=== PATIENT | female | born 1940 | race Caucasian/White ===

== ENCOUNTER 2023-12-30 15:07 | Inpatient (IN) | payer MEDICARE ==
[~2023-12-30] VITALS: Ht 162.6 cm; Wt 69.9 kg
[2023-12-30] MEDS ORDERED: METO-357 PO (15:27)
[2023-12-30] MEDS ORDERED: LISI-782 PO (15:27)
[2023-12-30] MEDS ORDERED: VITAMIN B12 PO (15:27)
[2023-12-30] MEDS ORDERED: ESCI10TA PO (15:27)
[2023-12-30] MEDS ORDERED: LATA7.5D EACHEYE (15:27)
[2023-12-30] MEDS ORDERED: ASPI81TA31 PO (15:27)
[2023-12-30] MEDS ORDERED: QUET25TA PO (15:27)
[2023-12-30] MEDS ORDERED: IPRA12.9 (15:27)
[2023-12-30] MEDS ORDERED: ATOR20TA PO (15:27)
[2023-12-30] MEDS ORDERED: ERGO500040 PO (15:27)
[2023-12-30] MEDS ORDERED: LEVO75TA7 PO (15:27)
[2023-12-30 17:17] LABS: BASOPHILS % (AUTO) 0.8 % (0.0-2.0); EOSINOPHILS # (AUTO) 0.1 K/uL (0.0-0.7); EOSINOPHILS % (AUTO) 1.9 % (0.0-7.0); HEMATOCRIT 37.7 % (31.2-41.9); HEMOGLOBIN 12.4 g/dL (10.9-14.3); LYMPHOCYTES # (AUTO) 1.7 K/uL (0.8-4.8); LYMPHOCYTES % (AUTO) 28.2 % (20.5-51.5); MEAN CORPUSCULAR HEMOGLOBIN 29.6 uug (24.7-32.8); MEAN CORPUSCULAR HGB CONC 33 g/dL (32.3-35.6); MEAN CORPUSCULAR VOLUME 90.2 fL (75.5-95.3); MONOCYTES # (AUTO) 0.6 K/uL (0.1-1.30); MONOCYTES % (AUTO) 9.6 % (0.0-11.0); NEUTROPHILS # (AUTO) 3.7 K/uL (1.8-8.9); NEUTROPHILS % (AUTO) 59.5 % (38.5-71.5); PLATELET COUNT (AUTO) 227 K/uL (179-408); RED BLOOD CELL COUNT(AUTO) 4.18 MIL/uL (3.63-4.92); RED CELL DISTRIBUTION WIDTH 14.6 % (12.3-17.7); WHITE BLOOD COUNT (AUTO) 6.1 K/uL (3.8-11.8)
[2023-12-30 17:23] LABS: DIFFERENTIAL COMMENT 1
[2023-12-30 17:37] LABS: ETHANOL < 3 MG/DL (0-10)
[2023-12-30 17:45] LABS: CALCIUM 9.1 mg/dL (8.5-10.1); CARBON DIOXIDE 26 mmol/L (21-32); CHLORIDE 105 mmol/L (98-107); CREATININE 0.7 mg/dL (0.6-1.3); GLUCOSE 99 mg/dL (74-106); POTASSIUM 3.6 mmol/L (3.5-5.1); SODIUM SERUM 141 mmol/L (136-145); UREA NITROGEN, BLOOD 21 mg/dL (7-18)
[2023-12-30 17:57] LABS: ALANINE AMINOTRANSFERASE 11 U/L (14-59); ALBUMIN 3.4 g/dL (3.4-5.0); ALKALINE PHOSPHATASE 52 U/L (50-136); ASPARTATE AMINOTRANSFERASE 9 U/L (15-37); BILIRUBIN,DIRECT 0.1 mg/dL (0.0-0.2); BILIRUBIN,TOTAL 0.4 mg/dL (0.2-1.0); TOTAL PROTEIN, SERUM 6.6 g/dL (6.4-8.2)
[2023-12-30 18:00] LABS: ACETAMINOPHEN < 2.0 ug/mL (10-30)
[2023-12-30] MEDS: IV NS 1000 ML 1,000 ML IV ONE ×2 (18:21→20:08)
[2023-12-30 18:58] LABS: *BILIRUBIN,URIN NEGATIVE (NEGATIVE); *BLOOD, URINE TRACE (NEGATIVE); *CLARITY,URINE CLEAR (CLEAR); *COLOR,URINE YELLOW (YELLOW); *KETONES,URINE NEGATIVE (NEGATIVE); *PROTEIN,URINE NEGATIVE (NEGATIVE); *UROBILINOGEN,URINE 0.2 E.U./dl (NORMAL); LEUKOCYTE ESTERASE ,URINE TRACE (NEGATIVE); NITRITE, URINE NEGATIVE (NEGATIVE); UGLUCOSE NEGATIVE (NEGATIVE)
[2023-12-30 19:28] LABS: *AMPHETAMINE, URINE NEGATIVE (NEGATIVE); *BARBITURATE, URINE NEGATIVE (NEGATIVE); *BENZODIAZEPINE, URINE NEGATIVE (NEGATIVE); *CANNABINOID, URINE NEGATIVE (NEGATIVE); *COCCAINE, URINE NEGATIVE (NEGATIVE); *OPIATE, URINE NEGATIVE (NEGATIVE); *PHENCYCLIDINE SCREEN,URINE NEGATIVE (NEGATIVE); FENTANYL, URINE NEGATIVE (NEGATIVE)
[2023-12-30 19:43] LABS: BACTERIA,URINE MANY /HPF (NONE SEEN); RBC,URINE 0-3 /HPF (0-3); SQUAMOUS EPITHELIAL CELL,UR MANY /HPF (NONE SEEN); WBC,URINE 0-3 /HPF (0-3)
[2023-12-30] MEDS ORDERED: diphenhydrAMINE 50 MG/1 ML VIAL ONE (20:01)
[2023-12-30] MEDS ORDERED: LORAZEPAM 2 MG/1 ML VIAL ONE (20:02)
[2023-12-30] MEDS ORDERED: HALOPERIDOL LACTATE 5 MG/1 ML VIAL ONE (20:02)
[2023-12-30] MEDS: HALOPERIDOL LACTATE 5 MG/1 ML VIAL IV ONE (20:08)
[2023-12-30] MEDS: diphenhydrAMINE 50 MG/1 ML VIAL IV ONE (20:08)
[2023-12-30] MEDS: LORAZEPAM 2 MG/1 ML VIAL IV ONE (20:08)
[2023-12-30] MEDS ORDERED: ENALAPRILAT DIHYDRATE 1.25 MG/1 ML VIAL IV ONE (20:28)
[2023-12-30] MEDS ORDERED: hydrALAZINE HCL 20 MG/1 ML VIAL ONE (20:28)
[2023-12-30] MEDS: hydrALAZINE HCL 20 MG/1 ML VIAL IV ONE (20:33)
[2023-12-30] MEDS: ENALAPRILAT DIHYDRATE 1.25 MG/1 ML VIAL IV ONE (20:34)
[2023-12-30 21:30] VITALS: BP 145/78; TEMP 98; O2SAT 96
[2023-12-30] MEDS ORDERED: ACETAMINOPHEN 325 MG TABLET PO PRN (23:30)
[2023-12-30] MEDS ORDERED: MAGNESIUM HYDROXIDE 30 ML LIQUID UDC PO PRN (23:30)
[2023-12-30] MEDS ORDERED: MAG HYDROX/AL HYDROX/SIMETH 30 ML LIQUID UDC PO PRN (23:30)
[2023-12-31] MEDS: TEMAZEPAM 7.5 MG CAPSULE PO PRN (01:02)
[2023-12-31] MEDS: LORAZEPAM 0.5 MG TABLET PO PRN (02:18)
[2023-12-31 08:17] VITALS: BP 144/87; TEMP 97.9; O2SAT 96
[2023-12-31] MEDS: DIVALPROEX 125 MG TABLET.DR PO SCH (11:00)
[2023-12-31] MEDS: QUETIAPINE FUMARATE 25 MG TABLET PO SCH ×2 (11:00→21:50)
[2023-12-31] MEDS: LISINOPRIL 5 MG TABLET PO SCH (16:00)
[2023-12-31] MEDS: ASPIRIN 81 MG TAB.CHEW PO SCH (16:00)
[2023-12-31] MEDS ORDERED: HOME MED MISCELLANEOUS XX SCH (16:00)
[2023-12-31 16:21] VITALS: BP 131/71; TEMP 98; O2SAT 97
[2023-12-31] MEDS ORDERED: CYAN-51 PO (16:53)
[2023-12-31] MEDS ORDERED: IPRA42SP NS (16:55)
[2023-12-31 19:53] VITALS: BP 138/69; TEMP 97.8; O2SAT 96
[2023-12-31] MEDS: LATANOPROST OPHT DROP 2.5 ML BOTTLE OP SCH (21:48)
[2023-12-31] MEDS: METOPROLOL SUCCINATE XL 50 MG TAB.SR.24H PO SCH (21:49)
[2023-12-31] MEDS: ATORVASTATIN 20 MG TABLET PO SCH (21:50)
[2024-01-01] MEDS ORDERED: IPRATROPIUM BROMIDE 12.9 GM INHALER INH SCH (06:00)
[2024-01-01] MEDS: LEVOTHYROXINE SODIUM 75 MCG TABLET PO SCH (07:00)
[2024-01-01 07:53] VITALS: BP 155/73; TEMP 98; O2SAT 97
[2024-01-01] MEDS: CYANOCOBALAMIN 1,000 MCG TABLET PO SCH (08:57)
[2024-01-01] MEDS: IPRATROPIUM BROMIDE NASAL 15 ML BOTTLE 42 MCG/SPRAY NS SCH (10:31)
[2024-01-01 16:18] VITALS: BP 98/61; TEMP 98.1; O2SAT 97
[2024-01-01] MEDS: DIVALPROEX 125 MG TABLET.DR PO SCH (17:22)
[2024-01-01 20:01] VITALS: BP 134/76; TEMP 98; O2SAT 96
[2024-01-01] MEDS: CEphaleXIN 500 MG CAPSULE PO SCH (22:46)
[2024-01-02] MEDS: IPRATROPIUM BROMIDE NASAL 15 ML BOTTLE 42 MCG/SPRAY NS SCH (09:00)
[2024-01-02 15:20] VITALS: BP 100/59; TEMP 98.2; O2SAT 100
[2024-01-02] MEDS: DIVALPROEX 125 MG TABLET.DR PO SCH (16:20)
[2024-01-02 20:15] VITALS: BP 106/56; TEMP 98.1; O2SAT 96
[2024-01-03 08:00] VITALS: BP 149/71; TEMP 98; O2SAT 98
[2024-01-03 08:13] LABS: BASOPHILS % (AUTO) 0.4 % (0.0-2.0); EOSINOPHILS # (AUTO) 0.1 K/uL (0.0-0.7); EOSINOPHILS % (AUTO) 1.3 % (0.0-7.0); HEMOGLOBIN 13.2 g/dL (10.9-14.3); LYMPHOCYTES # (AUTO) 0.9 K/uL (0.8-4.8); LYMPHOCYTES % (AUTO) 10.2 % (20.5-51.5); MEAN CORPUSCULAR HEMOGLOBIN 30.6 uug (24.7-32.8); MEAN CORPUSCULAR HGB CONC 34 g/dL (32.3-35.6); MEAN CORPUSCULAR VOLUME 90.7 fL (75.5-95.3); MONOCYTES # (AUTO) 0.8 K/uL (0.1-1.30); MONOCYTES % (AUTO) 9.3 % (0.0-11.0); NEUTROPHILS # (AUTO) 6.7 K/uL (1.8-8.9); NEUTROPHILS % (AUTO) 78.8 % (38.5-71.5); PLATELET COUNT (AUTO) 216 K/uL (179-408); RED CELL DISTRIBUTION WIDTH 14.9 % (12.3-17.7); WHITE BLOOD COUNT (AUTO) 8.5 K/uL (3.8-11.8)
[2024-01-03 08:21] LABS: DIFFERENTIAL COMMENT 1
[2024-01-03 08:32] LABS: ALANINE AMINOTRANSFERASE 12 U/L (14-59); ALBUMIN 3.1 g/dL (3.4-5.0); ALKALINE PHOSPHATASE 63 U/L (50-136); ASPARTATE AMINOTRANSFERASE 19 U/L (15-37); BILIRUBIN,TOTAL 0.9 mg/dL (0.2-1.0); CALCIUM 8.1 mg/dL (8.5-10.1); CARBON DIOXIDE 27 mmol/L (21-32); CHLORIDE 104 mmol/L (98-107); CREATININE 0.7 mg/dL (0.6-1.3); GLUCOSE 85 mg/dL (74-106); POTASSIUM 3.7 mmol/L (3.5-5.1); SODIUM SERUM 139 mmol/L (136-145); TOTAL PROTEIN, SERUM 6.5 g/dL (6.4-8.2); UREA NITROGEN, BLOOD 19 mg/dL (7-18); VALPROIC ACID 60 ug/mL (50-100)
[2024-01-03 08:38] LABS: THYROID STIMULATING HORMONE 0.497 mIU/mL (0.358-3.740)
[2024-01-03 15:23] VITALS: BP 113/52; TEMP 98; O2SAT 100
[2024-01-03 20:00] VITALS: BP 148/66; TEMP 97.8; O2SAT 98
[2024-01-04 08:10] VITALS: BP 152/67; TEMP 98.2; O2SAT 97
[2024-01-04] MEDS: ENSURE ENLIVE (VAN) 240 ML LIQUID PO SCH (13:00)
[2024-01-04 16:34] VITALS: BP 112/50; TEMP 97.8; O2SAT 95
[2024-01-04 20:00] VITALS: BP 115/55; TEMP 98; O2SAT 98
[2024-01-05 08:24] VITALS: BP 138/52; TEMP 98.2; O2SAT 96
[2024-01-05] MEDS: ASPIRIN 81 MG TAB.CHEW PO SCH (09:02)
[2024-01-05] MEDS: LISINOPRIL 5 MG TABLET PO SCH (09:03)
[2024-01-05 16:04] VITALS: BP 137/88; TEMP 98; O2SAT 96
[2024-01-05 20:00] VITALS: BP 136/79; TEMP 98; O2SAT 96
[2024-01-06 08:28] VITALS: BP 139/58; TEMP 98; O2SAT 97
[2024-01-06 16:28] VITALS: BP 134/75; TEMP 98
[2024-01-06 19:57] VITALS: BP 134/72; TEMP 98; O2SAT 96
[2024-01-07 08:19] VITALS: BP 138/47; TEMP 97.8; O2SAT 97
[2024-01-07 15:55] VITALS: BP 135/60; TEMP 97.6; O2SAT 98
[2024-01-07 20:01] VITALS: BP 126/56; TEMP 97.8; O2SAT 96
[2024-01-08 07:58] VITALS: BP 163/55; TEMP 98; O2SAT 96
[2024-01-08] MEDS: QUETIAPINE FUMARATE 25 MG TABLET PO PRN (08:19)
[2024-01-08 16:26] VITALS: BP 133/55; TEMP 98.8; O2SAT 98
[2024-01-08 20:21] VITALS: BP 136/56; TEMP 97.9; O2SAT 96
[2024-01-09 09:10] VITALS: BP 136/76; TEMP 98.6; O2SAT 97
[2024-01-09 15:35] VITALS: BP 132/73; TEMP 98.8; O2SAT 98
[2024-01-09 20:24] VITALS: BP 126/74; TEMP 98.2; O2SAT 96
[2024-01-10 09:01] VITALS: BP 120/64; TEMP 98.6; O2SAT 98
[2024-01-10 09:34] VITALS: BP 120/64
== END 2024-01-10 13:30 | DRG 885 ==
LOC: ER 15:16 → GPS 21:00
PROVIDERS: ADMIT Psychiatry & Neurology Psychosomatic Medicine; ATTEND Nurse Practitioner Acute Care
DX: F29 Unspecified psychosis not due to a substance or known physiological condition (principal); U07.1 COVID-19; G93.41 Metabolic encephalopathy; F03.92 Unspecified dementia, unspecified severity, with psychotic disturbance; N39.0 Urinary tract infection, site not specified; F03.93 Unspecified dementia, unspecified severity, with mood disturbance; E78.5 Hyperlipidemia, unspecified; I10 Essential (primary) hypertension; H40.9 Unspecified glaucoma; E03.9 Hypothyroidism, unspecified; Z86.73 Personal history of transient ischemic attack (TIA), and cerebral infarction without residual deficits; Z79.890 Hormone replacement therapy; Z79.899 Other long term (current) drug therapy; E86.0 Dehydration; R94.31 Abnormal electrocardiogram [ECG] [EKG]; R79.89 Other specified abnormal findings of blood chemistry
CPT/HCPCS: 36415; 70450; 71045; 80164; 82747; 83921; 84443; 84484; 85014; 85025; 93005; A4606; A4663; G0480; J0360; J1200; J1630; J2060; J3490; J7040